=== PATIENT | male | born 1980 | race Caucasian/White ===

== ENCOUNTER 2016-10-11 13:55 | Emergency (ER) | payer MEDICAID ==
[~2016-10-11] VITALS: Ht 172.7 cm; Wt 59.1 kg
[2016-10-11] MEDS ORDERED: 0.9% SODIUM CHLORIDE 10 ML SYRINGE IVP PRN (15:15)
[2016-10-11 15:29] LABS: BASOPHILS % (AUTO) 0.3 % (0.0-2.0); EOSINOPHILS % (AUTO) 1.1 % (1.0-6.0); HEMATOCRIT 46.8 % (41-53); HEMOGLOBIN 15.9 g/dL (13.5-17.5); LYMPHOCYTES % (AUTO) 25.9 % (22.0-44.0); MEAN CORPUSCULAR HEMOGLOBIN 31.8 pg (26.0-34.0); MEAN CORPUSCULAR VOLUME 94 fL (80-100); MONOCYTES # (AUTO) 0.6 K/uL (0.1-1.0); MONOCYTES % (AUTO) 7.2 % (2.0-9.0); NEUTROPHILS # (AUTO) 5.2 K/uL (1.8-7.7); NEUTROPHILS % (AUTO) 65.5 % (40.0-70.0); PLATELET COUNT (AUTO) 379 K/uL (150-450); RED BLOOD CELL COUNT(AUTO) 4.99 MIL/uL (4.50-5.90); RED CELL DISTRIBUTION WIDTH 13.2 % (11.5-14.5); WHITE BLOOD COUNT (AUTO) 7.9 K/uL (4.5-11.0)
[2016-10-11 15:34] LABS: ANION GAP 8 mmol/L (8-16); CALCIUM, TOTAL 9.2 mg/dL (8.8-10.5); CARBON DIOXIDE 29 mmol/L (22-29); CHLORIDE 101 mmol/L (98-107); CREATININE 1.05 mg/dL (0.60-1.30); GLOMERULAR FILTR. RATE CALC > 60 mL/min (>60); POTASSIUM 3.8 mmol/L (3.5-5.1); SODIUM SERUM 138 mmol/L (136-145); UREA NITROGEN, BLOOD 11 mg/dL (7-18)
[2016-10-11 15:40] LABS: ALANINE AMINOTRANSFERASE 92 U/L (12-78); ALBUMIN 4.1 g/dL (3.4-5.0); ASPARTATE AMINOTRANSFERASE 22 U/L (15-37); BILIRUBIN,TOTAL 0.3 mg/dL (0.1-1.0); TOTAL PROTEIN, SERUM 9.2 g/dL (6.4-8.2)
[2016-10-11 15:42] LABS: LACTIC ACID 0.6 mmol/L (0.4-2.0)
[2016-10-11] MEDS ORDERED: DEXTROSE 5% IV ONE (16:15)
[2016-10-11] MEDS ORDERED: WATER IV ONE (16:15)
[2016-10-11] MEDS ORDERED: CEFTAROLINE 600 MG/D5W 250 ML IV ONE (16:15)
[2016-10-11] MEDS ORDERED: CEFTAROLINE FOSAMIL IV ONE (16:15)
[2016-10-11 17:47] VITALS: BP 116/76
== END 2016-10-11 17:50 | disposition home or self-care (01) ==
LOC: EMS 13:57
DX: L03.115 Cellulitis of right lower limb (principal); L03.116 Cellulitis of left lower limb; L03.811 Cellulitis of head [any part, except face]
CPT/HCPCS: 36415; 80053; 83605; 85025; 87040; 96365; 99284; J0712; J7060